=== PATIENT | male | born 1995 | race Caucasian/White ===

== ENCOUNTER 2017-10-10 23:44 | Emergency (ER) | payer OTHER ==
[2017-10-11 00:02] VITALS: BP 123/83; PULSE 63; TEMP 97.6; BMI 27.3
[2017-10-11] MEDS ORDERED: PANTOPRAZOLE 20 MG TABLET (FP) PO ONE (00:24)
--- NOTE | 2017-10-11 00:24 | PDOC ---
History of Present Illness - General History Source: Patient - History of Present Illness Initial Comments: 10/11/17 00:26 The patient is a 21 year old male, with a significant past medical history, who presents to the emergency department with ball like sensation to middle chest today. He states the sensation is exacerbated with eating food. The patient admits to ETOH consumption, tobacco smoking, and eating spicy foods. The patient shortness of breath, headache and dizziness. The patient denies fever, chills, nausea, vomit, diarrhea and constipation. The patient denies dysuria, frequency, urgency and hematuria. Allergies: NKDA Past surgical history: none reported Social history: ETOH and Tobacco use reported. No illicit drug use. <Terrie Chavez - Last Filed: 10/11/17 00:26> - General History Source: Patient <Jasper Larsen - Last Filed: 10/11/17 01:37> - General Chief Complaint: Chest Pain Stated Complaint: CHEST PAIN Time Seen by Provider: 10/11/17 00:21 Past History <Terrie Chavez - Last Filed: 10/11/17 00:26> - Suicide/Smoking/Psychosocial Hx Smoking History: Current some day smoker Have you smoked in the past 12 months: Yes Number of Cigarettes Smoked Daily: 3 Information on smoking cessation initiated: No Hx Alcohol Use: No Drug/Substance Use Hx: No <Jasper Larsen - Last Filed: 10/11/17 01:37> - Past Medical History Allergies/Adverse Reactions: Allergies Allergy/AdvReac Type Severity Reaction Status Date / Time No Known Allergies Allergy Verified 10/11/17 00:00 Home Medications: Ambulatory Orders Famotidine [Pepcid] 40 mg PO BID #20 tablet 10/11/17 Review of Systems - Review of Systems Able to Perform ROS?: Yes Comments:: 10/11/17 00:26 CONSTITUTIONAL: Absent: fever, chills, diaphoresis, generalized weakness, malaise, loss of appetite HEENT: Absent: rhinorrhea, nasal congestion, throat pain, throat swelling, difficulty swallowing, mouth swelling, ear pain, eye pain, visual Changes CARDIOVASCULAR: (+) ball-like sensation to chest. Absent: syncope, palpitations, irregular heart rate, lightheadedness, peripheral edema RESPIRATORY: Absent: cough, shortness of breath, dyspnea with exertion, orthopnea, wheezing, stridor, hemoptysis GASTROINTESTINAL: Absent: abdominal pain, abdominal distension, nausea, vomiting, diarrhea, constipation, melena, hematochezia GENITOURINARY: Absent: dysuria, frequency, urgency, hesitancy, hematuria, flank pain, genital pain MUSCULOSKELETAL: Absent: myalgia, arthralgia, joint swelling SKIN: Absent: rash, itching, pallor HEMATOLOGIC/IMMUNOLOGIC: Absent: easy bleeding, easy bruising, lymphadenopathy, frequent infections ENDOCRINE: Absent: unexplained weight gain, unexplained weight loss, heat intolerance, cold intolerance NEUROLOGIC: Absent: headache, focal weakness or paresthesias, dizziness, unsteady gait, seizure, mental status changes, bladder or bowel incontinence PSYCHIATRIC: Absent: anxiety, depression, suicidal or homicidal ideation, hallucinations. <Terrie Chavez - Last Filed: 10/11/17 00:26> *Physical Exam - Vital Signs Last Vital Signs Temp Pulse Resp BP Pulse Ox 97.6 F 63 20 123/83 100 10/11/17 00:01 10/11/17 00:01 10/11/17 00:01 10/11/17 00:01 10/11/17 00:01 - Physical Exam Comments: 10/11/17 00:26 GENERAL: Well developed, well nourished. Awake and alert. No acute distress. HEENT: Normocephalic, atraumatic. PERRLA, EOMI. No conjunctival pallor. Sclera are non- icteric. Moist mucous membranes. Oropharynx is clear. NECK: Supple. Full ROM. No JVD. Carotid pulses 2+ and symmetric, without bruits. No thyromegaly. No lymphadenopathy. CARDIOVASCULAR: Regular rate and rhythm. No murmurs, rubs, or gallops. Distal pulses are 2+ and symmetric. PULMONARY: No evidence of respiratory distress. Lungs clear to auscultation bilaterally. No wheezing, rales or rhonchi. ABDOMINAL: Soft. Non-tender. Non-distended. No rebound or guarding. No organomegaly. Normoactive bowel sounds. MUSCULOSKELETAL Normal range of motion at all joints. No bony deformities or tenderness. No CVA tenderness. EXTREMITIES: No cyanosis. No clubbing. No edema. No calf tenderness. SKIN: Warm and dry. Normal capillary refill. No rashes. No jaundice. NEUROLOGICAL: Alert, awake, appropriate. Cranial nerves 2-12 intact. Normoreflexic in the upper and lower extremities. Normal speech. Toes are down-going bilaterally. Gait is normal without ataxia. PSYCHIATRIC: Cooperative. Good eye contact. Appropriate mood and affect. <Terrie Chavez - Last Filed: 10/11/17 00:26> - Vital Signs Last Vital Signs Temp Pulse Resp BP Pulse Ox 97.6 F 63 20 123/83 100 10/11/17 00:01 10/11/17 00:01 10/11/17 00:01 10/11/17 00:01 10/11/17 00:01 <Jasper Larsen - Last Filed: 10/11/17 01:37> Medical Decision Making - Medical Decision Making 10/11/17 01:37 Dr. Larsen: The scribe's documentation has been prepared under my direction and personally reviewed by me in its entirery. I confirm that the note above accurately reflects all work, treatment, procedures, and medical decision making performed by me. <Jasper Larsen - Last Filed: 10/11/17 01:37> *DC/Admit/Observation/Transfer - Attestations Scribe Attestion: 10/11/17 00:27 Documentation prepared by Terrie Chavez, acting as medical management specialist for Jasper Larsen DO. <Terrie Chavez - Last Filed: 10/11/17 00:26> - Discharge Dispostion Decision to Admit order: No <Jasper Larsen - Last Filed: 10/11/17 01:37> Diagnosis at time of Disposition: GERD (gastroesophageal reflux disease) Qualifiers: Esophagitis presence: esophagitis presence not specified Qualified Code(s): K21.9 - Gastro-esophageal reflux disease without esophagitis - Discharge Dispostion Disposition: HOME Condition at time of disposition: Stable - Prescriptions Prescriptions: Famotidine [Pepcid] 40 mg PO BID #20 tablet - Patient Instructions Printed Discharge Instructions: DI for Gastroesophageal Reflux Disease (GERD) Print Language: PALAUAN
[2017-10-11] MEDS ORDERED: PANTOPRAZOLE 40 MG TABLET (FP) ONE (00:35)
--- NOTE | 2017-10-24 15:02 | EKG ---
Test Reason : Blood Pressure : / mmHG Vent. Rate : 064 BPM Atrial Rate : 064 BPM P-R Int : 158 ms QRS Dur : 086 ms QT Int : 384 ms P-R-T Axes : 050 061 048 degrees QTc Int : 396 ms NORMAL SINUS RHYTHM EARLY REPOLARIZATION NORMAL ECG NO PREVIOUS ECGS AVAILABLE Confirmed by RAMIREZ MCCLELLAN, HILDA ([id number]) on 10/24/2017 3:01:56 PM Referred By: Confirmed By:HILDA GUZMÁN MD
== END 2017-10-11 01:52 | disposition home or self-care (01) ==
LOC: JER 23:44
DX: K21.9 Gastro-esophageal reflux disease without esophagitis (principal); F17.210 Nicotine dependence, cigarettes, uncomplicated
CPT/HCPCS: 93005; 93010; 99282-25